=== PATIENT | male | born 1990 ===

== ENCOUNTER → 2021-10-15 17:02 | Outpatient (CLI) | payer OTHER, SELFPAY ==
[2021-10-15 18:12] LABS: Influenza A - CEPHEID Flu A POSITIVE (NEGATIVE); Influenza B - CEPHEID Flu B NEGATIVE (NEGATIVE)
[2021-10-15 18:15] LABS: COVID-19 CEPHEID PCR (VTM/NP) Negative (Negative)
== END ==
PROVIDERS: Visit Provider Physician Assistant
DX: R11.10 Vomiting, unspecified (principal)
CPT/HCPCS: 0240U